=== PATIENT | male | born 1935 | race Two or more races ===

== ENCOUNTER 2025-03-09 11:45 | Day surgery (SDC) | payer MEDICARE, BC, MEDICAID, SELFPAY ==
[2025-03-08 15:12] VITALS: BMI 22.2
[2025-03-09] VITALS (10 sets, daily range): BP systolic 108–173; BP diastolic 55–93; PULSE 59–109; RESP 13–20; TEMP 36.1–36.7; O2SAT 93–100; BMI 21.4
--- NOTE | 2025-03-09 16:30 | SUR.PHASEII ---
1530: pt arrived to PACU via gurney drowsy but arouses to voice, breathing unlabored, pt bedbound at baseline, report from Maria T HUSAIN 1545: pt tolerating oral fluids without difficulty swallowing or n/v 1600: Report called to Colleen HUSAIN at [facility] 1615: Transport here, pt dressed with assistance per baseline, transferred to personal wheelchair without incident, discharge instructions signed by Gena-caregiver 1630: pt discharged via personal wheelchair with family and facility human resource professional to transport van with all belongings and discharge paperwork.
== END 2025-03-09 16:30 | disposition home or self-care (01) ==
PROVIDERS: PCP Family Medicine; Referring Provider Specialist; Visit Provider Specialist
PROC: (CPT 43239; principal; 2025-03-09 14:15)
DX: K22.2 Esophageal obstruction (principal); K22.10 Ulcer of esophagus without bleeding; K29.70 Gastritis, unspecified, without bleeding; K29.50 Unspecified chronic gastritis without bleeding; K31.89 Other diseases of stomach and duodenum; K63.89 Other specified diseases of intestine
CPT/HCPCS: 43248; 43239; A4217; C1769; J1200; J2250; J3010; A9270

== ENCOUNTER 2025-04-08 08:54 | Emergency (ER) | payer MEDICARE, BC, MEDICAID, SELFPAY ==
[2025-04-08 09:05] VITALS: PULSE 85; RESP 18; O2SAT 99
--- NOTE | 2025-04-08 09:10 | EKG_ITS ---
[facility] Test Date: 2025-04-08 Pat Name: GAVIN MÉNDEZ Department: Room: - Gender: Male Phone Counselor: : [id number] Requested By: Andres Morgan Order Number: [id number] Reading MD: Andres Morgan Measurements Intervals Simla Rate: 96 P: -6 VA: 151 QRS: -37 QRSD: 88 T: -22 QT: 339 QTc: 428 Interpretive Statements SINUS RHYTHM LEFT AXIS DEVIATION [QRS AXIS < -30] PATTERN CONSISTENT WITH PULMONARY DISEASE ST DEVIATION AND MODERATE T-WAVE ABNORMALITY, CONSIDER ANTERIOR ISCHEMIA [-0.1+ mV T-WAVE IN V3/V4] Compared to ECG 10/10/2023 00:49:35 Possible ischemia now present Atrial fibrillation no longer present T-wave abnormality still present /store/S0/[id number]/ecg/[id number].pdf
--- NOTE | 2025-04-08 09:11 | EDNOTE_ITS ---
ED General RME/HPI General Chief complaint: GI Bleed Stated complaint: VOMITTING Time Seen by Provider: 04/08/25 09:07 Arrival date/time: 04/08/25 08:54 Limitations: no limitations RME / HPI RME / HPI narrative: DR. HOLGUIN MAIN ED EVALUATION: 89 year old male presents to the Emergency Department BIBA from [facility] with complaint of x1 episode of coffee ground emesis. No other c omplaints at this time. 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 GERD, chronic anemia, and muscle weakness. Code Status: DNR Related Data Home Medications ?Medication ?Instructions ?Recorded ?Confirmed bicalutamide 50 mg tablet 50 mg PO QDAY 11/04/1903/09 enzalutamide 40 mg capsule (Xtandi) 160 mg PO QDAY 03/09/25 tizanidine 2 mg tablet 2 mg PO HS 11/22/23 03/09/25 chlorpromazine 25 mg tablet 25 mg PO Q6H PRN nausea 03/09/25 docusate sodium 100 mg capsule 100 mg PO BID 03/08/25 03/09/25 (Colace) Previous Rx's ?Medication ?Instructions ?Recorded oxycodone 5 mg capsule 5 mg PO Q6H PRN pain #12 cap s 11/25/23 pantoprazole 40 mg tablet,delayed 40 mg PO BID #60 tab s 11/25/23 release (Protonix) doxycycline hyclate 100 mg capsule 100 mg PO BID #14 c aps 04/25/24 sucralfate 1 gram tablet (Carafate) 1 g PO BID #60 tab s 04/08/25 Allergies Allergy/AdvReac Type Severity Reaction Status Date / Time No Known Allergies Allergy Verified 03/09/25 12:18 Review of Systems Review of Systems Systems Reviewed: All systems reviewed, normal except as documented Past Medical History Past Medical History NEUROLOGIC: Positive Neurological Disorders and Dementia; Negative Seizures CARDIAC: Negative Cardiac Disorders or Congestive Heart Failure RESPIRATORY: Positive Pneumonia; Negative Chronic Obstructive Pulmonary Disease (COPD) or Asthma GASTROINTESTINAL: Positive Gastrointestinal Disorders (dysphagia, gerd), Gastrointestinal Bleed and Gastroesophageal Reflux Disease GENITOURINARY: Positive Genitourinary Disorders (hydrocele), Kidney Stones and Prostate Cancer; Negative Renal Disease MUSCULOSKELETAL: Positive Musculoskeletal Disorders, Bone Cancer and Arthritis ENT: Positive Cataracts ENDOCRINE: Negative Endocrine Disorders, Diabetes Mellitus Type 1 or Diabetes Mellitus Type 2 HEMATOLOGIC: Positive Blood Disorders and Anemia; Negative Sickle Cell Disease OTHER HISTORY: Positive Falls, Radiation Therapy, Cancer and Prostate Cancer; Negative Blood Transfusions, Blood Transfusion Reaction, Anesthesia Reactions, MRSA or Clostridium Difficile Family History FAMILY HISTORY: Negative Family Cardiac Disorders Surgical History SURGICAL: Positive Eye Surgery, Abdominal Surgery and Joint Replacement; Negative Endocrine Surgery, Ear Surgery, Neurologic Surgery or Vasectomy Social History SMOKING STATUS: Never smoker SUBSTANCE USE: does not use 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 ED Exam General Limitations: Present no limitations General appearance: Present alert, in no apparent distress and other (Good eye contact) Head Head exam: Present atraumatic, normocephalic and normal inspection Eye Eye exam: Present normal appearance, PERRL and EOMI ENT ENT exam: Present normal exam, normal oropharynx and mucous membranes moist Neck Neck exam: Present normal inspection, full ROM and trachea midline Chest Chest inspection: Present normal inspection and symmetric chest wall rise Respiratory Respiratory exam: Present normal lung sounds bilaterally Cardiovascular Cardiovascular exam: Present regular rate, normal rhythm and normal heart sounds Abdominal Exam Abdominal exam: Present soft and normal bowel sounds Extremities Exam Extremities exam: Present other (contracted) Back Exam Back exam: Present normal inspection Neurological Exam Neurological exam: Present alert (at baseline) Psychiatric Psychiatric exam: Present normal affect and normal mood Skin Skin exam: Present warm, dry, intact and normal color Course Quality Measures none Orders Category Date Time Status Potato Sorter STAT Care 04/08/25 09:47 Active Continuous Pulse Oximetry STAT Care 04/08/25 09:48 Completed EKG (ED ONLY) *Do not use* NOW Care 04/08/25 09:10 Completed Insert IV STAT Care 04/08/25 09:48 Completed NPO STAT Care 04/08/25 09:48 Active Occult Blood,Stool (Nursing) NEEDED Care 04/08/25 09:44 Active EKG (ED Only) Stat Exams 04/08/25 09:10 Draft XR abdomen series w chest 1V Stat Exams 04/08/25 09:49 Completed CBC Stat Lab 04/08/25 10:02 Completed Comprehensive Metabolic Panel Stat Lab 04/08/25 10:02 Completed Lipase Stat Lab 04/08/25 10:02 Completed Magnesium Stat Lab 04/08/25 10:02 Completed Partial Thromboplastin Time Stat Lab 04/08/25 10:02 Completed Prothrombin Time with INR Stat Lab 04/08/25 10:02 Completed Troponin I Stat Lab 04/08/25 10:02 Completed Type and Screen Stat Lab 04/08/25 10:02 Completed Urinalysis Stat Lab 04/08/25 09:49 Ordered Pantoprazole Inj [Protonix Inj] Med 04/08/25 09:44 Discontinued 40 mg IVP X1 ONE Sodium Chloride 0.9% 1000 ml [Ns] 1,000 ml Med 04/08/25 09:44 Discontinued IV 999 mls/hr Vital Signs Vital signs: Vital Signs Temperature 98.7 F 04/08/25 09:15 Pulse Rate 91 04/08/25 09:15 Respiratory Rate 18 04/08/25 09:15 Blood Pressure 169/89 H 04/08/25 09:15 Pulse Oximetry (%) 96 04/08/25 09:15 Oxygen Delivery Method Room Air 04/08/25 09:15 Discharge Plan Plan Patient Disposition: Xfer Skilled Nsg Fac (SNF) Patient condition on transfer: Stable Prescriptions/Referrals Prescriptions/Med Rec: New sucralfate [Carafate] 1 gram tablet 1 g PO BID Qty: 60 0RF No Action bicalutamide 50 mg Tablet 50 mg PO QDAY doxycycline hyclate 100 mg capsule 100 mg PO BID Qty: 14 0RF Xtandi 40 mg capsule 160 mg PO QDAY tizanidine 2 mg tablet 2 mg PO HS pantoprazole [Protonix] 40 mg tablet,delayed release (DR/EC) 40 mg PO BID Qty: 60 2RF oxycodone 5 mg capsule 5 mg PO Q6H MDD 20mg PRN (Reason: pain) Qty: 12 0RF chlorpromazine 25 mg tablet 25 mg PO Q6H PRN (Reason: nausea) docusate sodium [Colace] 100 mg capsule 100 mg PO BID Referrals: Carlin Gómez MD [Primary Care Provider] - In 1 week Problem List Clinical Impression: Upper GI bleed Patient/Caregiver Discharge Instructions Education Materials: ED Upper GI Bleeding (Stable) Additional Instructions: Please follow-up with your primary care physician within 2-3 days. Return to the Emergency Department as needed. Print Language: Omani Stand Alone Forms: Maddy Award Info., Patient Portal Info Letter [facility] Narrative [facility] hospital course: I, Tanya Rubio, am scribing for and in the presence of Dr. Holguin. Patient had one episode of coffee ground emesis but no more episodes here. His hemoglobin is stable and patient had a recent endoscopy that showed gastritis. Plan to discharged, patient is stable. 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 GERD, chronic anemia, and muscle weakness. Code Status: DNR EKG EKG Interpretation narrative: My interpretation: EKG performed at 0915 hours, sinus rhythm, rate 96, left axis deviation, lots of artifact, GA interval 151 ms, QRS duration 88 ms, QT/QTc 339/392, P-R-T axis -6, -37, and -22 Lab Interpretation Labs: see narrative above Imaging Radiology reports / interpretation(s): Procedure(s): XR abdomen series w chest 1V Accession Number(s): [id number] cc: Andres Holguin MD; Juan Lyon MD; Carlin Gómez MD~ Examination: AP chest single view Technique one AP portable semiupright chest single view Date and time: April 08, 2025 1027 hrs. Comparison April 25, 2024 Indications: Abdominal pain chest pain and diarrhea today. Findings: No significant cardiac enlargement No pneumonia or pulmonary edema Prominent osteopenia Old left-sided rib fractures Impression: No active disease Dictated By: Juan Lyon MD Medication Administration(s) Medication Administration History Discontinued Medications Sodium Chloride (Ns) 1,000 mls @ 999 mls/hr IV .Q1H1M ONE Stop: 04/08/25 10:44 Last Infusion: 04/08/25 11:02 Dose: Infused Documented By: Admin: 04/08/25 10:02 Dose: 999 mls/hr Documented By: DO Pantoprazole Sodium (Pantoprazole Inj 40 Mg Vial) 40 mg IVP X1 ONE Stop: 04/08/25 09:45 Last Admin: 04/08/25 10:03 Dose: 40 mg Documented By: DO Diagnosis Differential diagnosis: Upper GI bleed, anemia, dehydration Most likely dx, and/or detailed dx discussion: Upper GI bleed Dispositon Disposition: Nursing/Care
[2025-04-08 09:15] VITALS: BP 169/89; PULSE 91; RESP 18; TEMP 37.1; O2SAT 96
--- NOTE | 2025-04-08 09:49 | XR_ITS ---
Examination: AP chest single view Technique one AP portable semiupright chest single view Date and time: April 08, 2025 1027 hrs. Comparison April 25, 2024 Indications: Abdominal pain chest pain and diarrhea today. Findings: No significant cardiac enlargement No pneumonia or pulmonary edema Prominent osteopenia Old left-sided rib fractures Impression: No active disease
[2025-04-08] MEDS: SODIUM CHLORIDE 0.9% 1000 ML 1,000 ML 999 ML IV (10:02)
[2025-04-08] MEDS: PANTOPRAZOLE INJ 40 MG VIAL IVP (10:03)
[2025-04-08 10:05] VITALS: BP 166/72; PULSE 76; RESP 19; TEMP 37.1; O2SAT 97
[2025-04-08 10:15] LABS: Basophils % (Auto) 0 % (0-2.5); Eosinophils % (Auto) 0 % (0-10); Hematocrit 27.9 % (41.0-53.0); Immature Granulocytes % (Auto) 0 % (0-0); Immature Granulocytes Auto 0.03 Thou/mm3 (0.00-0.00); Lymphocytes # (Auto) 0.6 Thou/mm3 (1.0-4.8); Lymphocytes % (Auto) 8 % (10-50); Mean Corpuscular HGB Conc 32.3 g/dl (31.0-37.0); Mean Corpuscular Hemoglobin 26.1 pg (25.0-35.0); Mean Corpuscular Volume 81 fL (80-100); Monocytes # (Auto) 0.3 Thou/mm3 (0.0-0.8); Monocytes % (Auto) 5 % (0-12); Neutrophils # (Auto) 6.4 Thou/mm3 (1.8-7.7); Neutrophils % (Auto) 87 % (37-80); Nucleated Red Blood Cell % 0 /100 WBC (0); Platelet Count 378 Thou/mm3 (140-440); RDW Standard Deviation 46.6 fL (35.1-43.9); Red Blood Count 3.45 Miln/mm3 (4.50-5.90); White Blood Count 7.4 Thou/mm3 (3.8-10.6)
[2025-04-08 10:38] LABS: Alanine Aminotransferase < 7 U/L (10-49); Albumin, Serum 3.9 gm/dL (3.4-4.8); Albumin/Globulin Ratio 1.3 (1.2-2.2); Alkaline Phosphatase 98 U/L (46-116); Anion Gap 8 (7-16); Aspartate Amino Transferase 18 U/L (0-34); BUN/Creatinine Ratio 20 Ratio (12-20); Bilirubin,Total 0.3 mg/dL (0.3-1.2); Blood Urea Nitrogen 16 mg/dL (9-23); Calcium 9.9 mg/dL (8.3-10.6); Carbon Dioxide 31.3 mMol/L (20.0-31.0); Chloride 101 mMol/L (98-107); Creatinine (Component) 0.8 mg/dL (0.6-1.3); Globulin 3.1 gm/dL (2.3-3.5); Glucose 145 mg/dL (74-106); Lipase 27 U/L (12-53); Magnesium 1.8 mg/dL (1.6-2.6); Osmolality,Calculated 283 (275-295); Potassium 3.7 mMol/L (3.4-5.1); Sodium 140 mMol/L (136-145); Troponin I 0.037 ng/mL (0.0-0.045); eGFR > 60 See Note
[2025-04-08 11:03] VITALS: PULSE 78
--- NOTE | 2025-04-08 11:04 | PC.NURSE ---
Patient DENYS from [facility] for vomiting coffee ground emesis about 30 mins before arrival to ED. Per staff at facility patient recently had a EGD with esophageal dilation done around the end of last month. Patient was changed by this RN and daughter Jyoti at bedside. Patient vitals are stable. Plan of care ongoing
--- NOTE | 2025-04-08 11:24 | PC.NURSE ---
Attempted to give patient urinal for urine sample needed. Patient was not able to urinate at this time. Breif applied. at bedside. Vitals stable. Plan of care ongoing
[2025-04-08 12:00] VITALS: BP 152/76; PULSE 78; RESP 17; TEMP 36.8; O2SAT 98
--- NOTE | 2025-04-08 13:43 | PC.CC ---
Addendum entered by Heidi Copeland 04/08/25 14:45: Ambar from [facility] and stated a furniture delivery driver will p/u pt between [id number]. Original Note: ASW contacted [facility] transporation and requested a return to SNF transport. [facility] will call back with a p/u ETA
--- NOTE | 2025-04-08 14:44 | PC.NURSE ---
[facility] Spoke to Mary. No further questions. Patient to be discharged back to facility all discharge instructions given to Staff and Family that is currently at bedside.
[2025-04-08 14:52] VITALS: BP 154/72; PULSE 66; RESP 16; TEMP 36.8; O2SAT 95
== END 2025-04-08 16:39 | disposition skilled nursing facility (03) ==
PROVIDERS: Emergency Provider Family Medicine; PCP Family Medicine
DX: K92.2 Gastrointestinal hemorrhage, unspecified (principal); R94.31 Abnormal electrocardiogram [ECG] [EKG]
CPT/HCPCS: 36415; 74022; 80053; 81001; 83690; 83735; 84484; 85025; 85610; 85730; 86850; 86900; 86901; 93005; 96361; 96374; 99284; J2470; J7030

== ENCOUNTER 2025-08-03 16:26 | Inpatient (IN) | payer MEDICARE, BC, MEDICAID, SELFPAY ==
[2025-08-03 16:28] VITALS: PULSE 55; O2SAT 98
--- NOTE | 2025-08-03 16:31 | PD.EDGIBLD ---
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 Per medics, [place] staff reported at about 16:00 hours patient began vomiting coffee ground material, equalling to about 2 cups. Accompanied by abdominal discomfort. Per medics, [place] stated the patient was doing well this morning. Related Data Home Medications ?Medication ?Instructions ?Recorded ?Confirmed bicalutamide 50 mg tablet 50 mg PO QDAY 11/04/19 08/03/25 tizanidine 2 mg tablet 2 mg PO HS 11/22/23 08/03/25 chlorpromazine 25 mg tablet 25 mg PO Q6H PRN nausea 03/08/25 08/03/25 docusate sodium 100 mg capsule 100 mg PO BID 03/08/25 08/03/25 (Colace) bisacodyl 10 mg rectal suppository 10 mg PA QDAY PRN constipation 08/03/25 08/03/25 (Dulcolax (bisacodyl)) guaifenesin 15 ml PO Q8HR PRN cough 08/03/25 08/03/25 magnesium hydroxide 30 ml PO Q72H PRN constipation 08/03/25 08/03/25 polyethylene glycol 3350 17 gram 34 g PO QDAY 08/03/25 08/03/25 oral powder packet (Miralax) sennosides 8.6 mg tablet (senna) 8.6 mg PO BID 08/03/25 08/03/25 sodium phosphates 19 gram-7 118 ml PA Q72H PRN constipation 08/03/25 08/03/25 gram/118 mL enema (Enema) tuberculin PPD 5 tub. unit/0.1 mL 5 tb unit .Route [id number] 08/03/25 08/03/25 intradermal injection solution Previous Rx's ?Medication ?Instructions ?Recorded oxycodone 5 mg capsule 5 mg PO Q6H PRN pain #12 caps 11/25/23 pantoprazole 40 mg tablet,delayed 40 mg PO BID 30 days #60 tabs 08/05/25 release Allergies Allergy/AdvReac Type Severity Reaction Status Date / Time No Known Allergies Allergy Verified 03/09/25 12:18 Review of Systems Review of Systems Systems Reviewed: All systems reviewed, normal except as documented Past Medical History Past Medical History NEUROLOGIC: Positive Neurological Disorders and Dementia RESPIRATORY: Positive Pneumonia GASTROINTESTINAL: Positive Gastrointestinal Disorders (dysphagia, gerd), Gastrointestinal Bleed and Gastroesophageal Reflux Disease GENITOURINARY: Positive Genitourinary Disorders (hydrocele), Kidney Stones and Prostate Cancer MUSCULOSKELETAL: Positive Musculoskeletal Disorders, Bone Cancer and Arthritis ENT: Positive Cataracts HEMATOLOGIC: Positive Blood Disorders and Anemia OTHER HISTORY: Positive Falls, Radiation Therapy, Cancer and Prostate Cancer Family History FAMILY HISTORY: Negative Family Cardiac Disorders Surgical History SURGICAL: Positive Eye Surgery, Abdominal Surgery and Joint Replacement; Negative Endocrine Surgery, Ear Surgery, Neurologic Surgery or Vasectomy Social History SMOKING STATUS: Never smoker SUBSTANCE USE: does not use 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 Exam General Limitations: Present no limitations General appearance: Present alert and other (patient actively vomiting coffee ground material during examination) Head Head exam: Present atraumatic, normocephalic and normal inspection Eye Eye exam: Present normal appearance, PERRL and EOMI ENT ENT exam: Present normal exam, normal oropharynx and mucous membranes moist Neck Neck exam: Present normal inspection, full ROM and trachea midline Chest Chest inspection: Present normal inspection and symmetric chest wall rise Respiratory Respiratory exam: Present normal lung sounds bilaterally Cardiovascular Cardiovascular exam: Present regular rate, normal rhythm and normal heart sounds Abdominal Exam Abdominal exam: Present soft and normal bowel sounds Extremities Exam Extremities exam: Present normal inspection and full ROM Back Exam Back exam: Present normal inspection and full ROM Neurological Exam Neurological exam: Present alert and CN II-XII intact Psychiatric Psychiatric exam: Present normal affect and normal mood Skin Skin exam: Present warm, dry, intact and normal color Course Quality Measures none Orders Category Date Time Status Admit to Inpatient Status Routine Admission 08/03/25 18:09 Active Patient Condition Routine Admission 08/03/25 18:09 Ordered Bedrest NOW Care 08/03/25 18:10 Active COVID-19 Screening Questionnaire NOW Care 08/03/25 17:44 Active Engineering Executive Q4H START 00 Care 08/03/25 16:32 Active Continuous Pulse Oximetry NOW Care 08/03/25 16:32 Completed Decision to Admit X1 Care 08/03/25 17:43 Completed Insert IV STAT Care 08/03/25 16:32 Completed Intake and Output Routine Care 08/03/25 16:32 Ordered NPO NOW Care 08/03/25 16:32 Active NPO NOW Care 08/03/25 18:10 Active Notify provider NEEDED Care 08/03/25 18:09 Active Occult Blood,Stool (Nursing) NOW Care 08/03/25 16:34 Active Sequential Compression Device QSHIFT Care 08/03/25 18:09 Active Vital Signs, Non-Routine Q8H Care 08/03/25 18:15 Ordered Consult to Gastroenterology Stat Cons 08/03/25 17:44 Ordered Diet NPO (NOW) Diet 08/03/25 18:10 Completed XR abdomen series w chest 1V Stat Exams 08/03/25 17:25 Completed Ammonia Stat Lab 08/03/25 16:50 Completed CBC AM DRAW Lab 08/04/25 06:31 Completed CBC AM DRAW Lab 08/05/25 05:10 Completed CBC AM DRAW Lab 08/06/25 05:00 Ordered CBC Stat Lab 08/03/25 16:50 Completed Comprehensive Metabolic Panel AM DRAW Lab 08/04/25 06:31 Completed Comprehensive Metabolic Panel AM DRAW Lab 08/05/25 05:10 Completed Comprehensive Metabolic Panel AM DRAW Lab 08/06/25 05:00 Ordered Comprehensive Metabolic Panel Stat Lab 08/03/25 16:50 Completed Lipase Stat Lab 08/03/25 16:50 Completed Magnesium AM DRAW Lab 08/04/25 06:31 Completed Magnesium Stat Lab 08/03/25 16:50 Completed Occult Blood, Gastric (LAB) Stat Lab 08/03/25 16:50 Received Partial Thromboplastin Time Stat Lab 08/03/25 16:50 Completed Phosphorous AM DRAW Lab 08/04/25 06:31 Completed Prothrombin Time with INR AM DRAW Lab 08/04/25 12:08 Completed Prothrombin Time with INR Stat Lab 08/03/25 16:50 Completed Troponin I Stat Lab 08/03/25 16:50 Completed Urinalysis, C/S if Indicated Stat Lab 08/04/25 06:00 Completed Acetaminophen Tab [Tylenol Tab] Med 08/03/25 18:09 Active 650 mg PO Q6H PRN Morphine* Inj Med 08/03/25 17:38 Discontinued 2 mg IVP X1 ONE Ondansetron Inj [Zofran Inj] Med 08/03/25 16:32 Discontinued 4 mg IVP Q1H PRN Ondansetron Inj [Zofran Inj] Med 08/03/25 18:09 Active 4 mg IVP Q6H PRN Ondansetron Inj [Zofran Inj] Med 08/03/25 17:38 Discontinued 4 mg IVP X1 ONE Pantoprazole Inj [Protonix Inj] Med 08/03/25 21:00 Discontinued 40 mg IVP Q12HR Pantoprazole Inj [Protonix Inj] Med 08/03/25 16:32 Discontinued 80 mg IVP X1 ONE Ringers Lactated 1000 ml [Lactated Ringers] 1,000 ml Med 08/03/25 18:15 Active IV 30 mls/hr Sodium Chloride 0.9% 1000 ml [Ns] 1,000 ml Med 08/03/25 16:32 Discontinued IV 999 mls/hr Code Status Routine Oth 08/03/25 18:09 Ordered Oxygen Delivery NOW RT 08/03/25 16:32 Completed Vital Signs Vital signs: Vital Signs Temperature 98.2 F 08/03/25 16:32 Pulse Rate 58 L 08/03/25 16:32 Respiratory Rate 14 08/03/25 16:32 Blood Pressure 158/67 H 08/03/25 16:32 Pulse Oximetry (%) 95 08/03/25 16:32 Oxygen Delivery Method Room Air 08/03/25 16:32 Pulse ox is 95% on room air which is adequate. GI Bleed MDM Narrative MDM Narrative:: I, Patricia Smith am scribing for and in the presence of Dr. Dunn. Notified by RN the emesis is gastrocult positive. 1728: Called Dr. Ramos, no answer, left a voicemail. Pending call back. 0: I spoke with hospitalist Dr. Gil. Discussed patients PMHx, HPI, ED course, exam findings, labs, and radiology results. The hospitalist agree to accept the patient for admission. 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, gastritis, previous admissions for GI bleed (last admission 11/22/24-11/25/24 and ED visit on 04/08/2025) How is presenting disease/condition affected by chronic disease/condition?: exacerbated by Evaluation data The following diagnostics were reviewed and interpreted by me:: lab results and radiology exam(s) Lab and/or radiology exams considered but not ordered:: None Interpretation Summary: H/H has improved from previous ED visit on 04/08/2025 Medications / Prescriptions Medications or Prescriptions considered but not ordered:: None Medication administrations:: Medication Administration History Acetaminophen (Acetaminophen 325 Mg Tablet) 650 mg PO Q6H PRN PRN Reason: Fever >101.5 Stop: 09/02/25 18:08 Lactated Ringer's (Lactated Ringers) 1,000 mls @ 30 mls/hr IV .Q24H [facility] Stop: 09/02/25 18:14 Last Admin: 08/04/25 23:41 Dose: 30 mls/hr Documented By: Infusion: 08/04/25 23:41 Dose: Infused Documented By: Admin: 08/03/25 18:28 Dose: 30 mls/hr Documented By: DENNIS Ondansetron HCl (Ondansetron Inj 2 Mg/Ml Inj 2 Ml) 4 mg IVP Q6H PRN; Protocol PRN Reason: NAUSEA OR VOMITING Stop: 09/02/25 18:08 Pantoprazole Sodium (Pantoprazole 40 Mg Tablet) 40 mg PO BID [facility] Stop: 09/03/25 20:59 Last Admin: 08/05/25 08:17 Dose: 40 mg Documented By: Admin: 08/04/25 20:40 Dose: 40 mg Documented By: [email or web address] Discontinued Medications Benzocaine (Benzocaine 20% (Hurricaine) [place] 1 Dose) 0 dose TOP X1 ONE Stop: 08/04/25 08:50 Last Admin: 08/05/25 07:09 Dose: Not Given Documented By: ELIANE Non-Admin Reason: Endo Orders Benzocaine (Benzocaine 20% (Hurricaine) [place] 1 Dose) Confirm Administered Dose 1 dose TOP .STK-MED ONE Stop: 08/04/25 10:05 Diphenhydramine HCl (Diphenhydramine Inj 50 Mg/Ml Vial) 25 mg IVP PRNMRX1 PRN PRN Reason: MODERATE SEDATION Stop: 08/04/25 10:49 Diphenhydramine HCl (Diphenhydramine Inj 50 Mg/Ml Vial) Confirm Administered Dose 50 mg .ROUTE .STK-MED ONE Stop: 08/04/25 10:05 Fentanyl Citrate (Fentanyl Cit Inj 50 Mcg/Ml Amp 2ml) 50 mcg IVP Q2M PRN PRN Reason: MODERATE SEDATION Stop: 08/04/25 10:49 Fentanyl Citrate (Fentanyl Cit Inj 50 Mcg/Ml Amp 2ml) Confirm Administered Dose 100 mcg .ROUTE .STK-MED ONE Stop: 08/04/25 10:05 Sodium Chloride (Ns) 1,000 mls @ 999 mls/hr IV .Q1H1M ONE Stop: 08/03/25 17:32 Last Infusion: 08/03/25 17:55 Dose: Infused Documented By: Admin: 08/03/25 16:50 Dose: 999 mls/hr Documented By: DENNIS Midazolam HCl (Midazolam Inj 1 Mg/Ml Vial 2 Ml) 2 mg IVP Q2M PRN PRN Reason: Moderate Sedation Stop: 08/04/25 10:49 Midazolam HCl (Midazolam Inj 1 Mg/Ml Vial 2 Ml) Confirm Administered Dose 4 mg .ROUTE .STK-MED ONE Stop: 08/04/25 10:05 Morphine Sulfate (Morphine Sulf Inj 4 Mg/Ml Vial) 2 mg IVP X1 ONE Stop: 08/03/25 17:39 Last Admin: 08/03/25 17:51 Dose: 2 mg Documented By: DENNIS Ondansetron HCl (Ondansetron Inj 2 Mg/Ml Inj 2 Ml) 4 mg IVP Q1H PRN PRN Reason: PERSISTENT NAUSEA OR VOMITING Last Admin: 08/03/25 16:48 Dose: 4 mg Documented By: DENNIS Ondansetron HCl (Ondansetron Inj 2 Mg/Ml Inj 2 Ml) 4 mg IVP X1 ONE; Protocol Stop: 08/03/25 17:39 Last Admin: 08/03/25 17:54 Dose: Not Given Documented By: DENNIS Non-Admin Reason: Duplicate Medication on eMAR Pantoprazole Sodium (Pantoprazole Inj 40 Mg Vial) 80 mg IVP X1 ONE Stop: 08/03/25 16:33 Last Admin: 08/03/25 16:47 Dose: 80 mg Documented By: DENNIS Pantoprazole Sodium (Pantoprazole Inj 40 Mg Vial) 40 mg IVP Q12HR MISSY Stop: 09/02/25 20:59 Last Admin: 08/04/25 08:09 Dose: 40 mg Documented By: Admin: 08/03/25 21:11 Dose: 40 mg Documented By: [email or web address] Potassium Chloride (Potassium Chloride 10% 20 Meq/15 Ml Udc) 40 meq PO X1 ONE Stop: 08/05/25 08:16 Last Admin: 08/05/25 08:28 Dose: 40 meq Documented By: ELIANE Potassium Chloride (Potassium Chloride 10% 20 Meq/15 Ml Udc) 20 meq PO X1 ONE Stop: 08/05/25 08:16 Last Admin: 08/05/25 08:28 Dose: 20 meq Documented By: ELIANE N/A Consultations Consultation(s) initiated? (list below): Yes Consultation #1 (Physician, Specialty, Details): See above Diagnosis GI bleed differential diagnosis: esophageal varices, gastritis and Upper gastrointestinal hemorrhage Most likely diagnosis given after review of the tests above:: Upper GI bleed Admission Indicated Admission indicated?: indicated Admission Request Was there a request for admission?: Yes Admission Attestation Admission request attestation: Discussed case with [] from Hospitalist service regarding admission. Discussed patients ED course, exam findings, labs, and radiology results. The Hospitalist [agrees,declines] to accept the patient for admission. Disposition Plan Disposition Plan: Admit Discharge Plan Plan Patient Disposition: Admit Acute Care w/in Hospital Problem List Clinical Impression: GI bleed
[2025-08-03 16:32] VITALS: BP 158/67; PULSE 58; RESP 14; TEMP 36.8; O2SAT 95; BMI 20.2
[2025-08-03] MEDS: ONDANSETRON INJ 2 MG/ML INJ 2 ML 4 MG IVP (16:48)
[2025-08-03 16:50] VITALS: PULSE 66
[2025-08-03] MEDS: SODIUM CHLORIDE 0.9% 1000 ML 1,000 ML 999 ML IV (16:50)
[2025-08-03 17:12] LABS: Basophils # (Auto) 0.0 Thou/mm3 (0.0-0.2); Basophils % (Auto) 0 % (0-2.5); Eosinophils # (Auto) 0.1 Thou/mm3 (0.0-0.5); Eosinophils % (Auto) 1 % (0-10); Hematocrit 35.4 % (41.0-53.0); Hemoglobin 11.7 g/dL (13.5-16.0); Immature Granulocytes Auto 0.03 Thou/mm3 (0.00-0.00); Lymphocytes # (Auto) 1.6 Thou/mm3 (1.0-4.8); Lymphocytes % (Auto) 22 % (10-50); Mean Corpuscular HGB Conc 33.1 g/dl (31.0-37.0); Mean Corpuscular Hemoglobin 30.2 pg (25.0-35.0); Mean Corpuscular Volume 92 fL (80-100); Monocytes # (Auto) 0.4 Thou/mm3 (0.0-0.8); Monocytes % (Auto) 5 % (0-12); Neutrophils # (Auto) 5.4 Thou/mm3 (1.8-7.7); Neutrophils % (Auto) 72 % (37-80); Nucleated Red Blood Cell # 0.00 Thou/mm3 (0.00-0.00); Nucleated Red Blood Cell % 0 /100 WBC (0); Platelet Count 262 Thou/mm3 (140-440); RDW Standard Deviation 53.6 fL (35.1-43.9); Red Blood Count 3.87 Miln/mm3 (4.50-5.90); White Blood Count 7.6 Thou/mm3 (3.8-10.6)
--- NOTE | 2025-08-03 17:25 | XR_ITS ---
EXAMINATION: AP chest single view TECHNIQUE: AP portable semiupright chest single view Date and time: August 03, 2025, 1754 hours, comparison April 08, 2025 INDICATIONS: Upper gastrointestinal bleeding today. FINDINGS: Mild opacity left base retrocardiac obscuring detail left hemidiaphragm Mild to moderate enlargement left ventricle Ectatic enlarged thoracic aorta Mild vascular congestion Severe osteopenia with old fracture left fifth rib posteriorly Advanced osteoarthritis left glenohumeral joint IMPRESSION: Scarring versus pneumonia left base retrocardiac, clinical correlation advised Mild vascular congestion
[2025-08-03 17:34] LABS: Ammonia < 10 uMol/L (11-32)
[2025-08-03 17:37] LABS: INR 1.0 (0.9-1.3); Partial Thromboplastin Time 26.0 Seconds (22.0-36.0); Prothrombin Time 10.5 Seconds (9.0-12.2)
[2025-08-03 17:46] LABS: Alanine Aminotransferase < 7 U/L (10-49); Albumin, Serum 3.7 gm/dL (3.4-4.8); Albumin/Globulin Ratio 1.2 (1.2-2.2); Alkaline Phosphatase 105 U/L (46-116); Anion Gap 11 (7-16); Aspartate Amino Transferase 22 U/L (0-34); BUN/Creatinine Ratio 23 Ratio (12-20); Bilirubin,Total 0.3 mg/dL (0.3-1.2); Blood Urea Nitrogen 18 mg/dL (9-23); Calcium 10.1 mg/dL (8.3-10.6); Calcium (Corrected) 10.3 mg/dL (8.5-10.1); Carbon Dioxide 31.4 mMol/L (20.0-31.0); Chloride 98 mMol/L (98-107); Creatinine (Component) 0.8 mg/dL (0.6-1.3); Estimated Creatinine Clearance 52.4 mL/min (>60); Globulin 3.0 gm/dL (2.3-3.5); Glucose 154 mg/dL (74-106); Lipase 22 U/L (12-53); Magnesium 1.7 mg/dL (1.6-2.6); Osmolality,Calculated 284 (275-295); Potassium 3.4 mMol/L (3.4-5.1); Sodium 140 mMol/L (136-145); Total Protein 6.7 gm/dL (5.7-8.2); Troponin I 0.026 ng/mL (0.0-0.045); eGFR > 60 See Note
[2025-08-03] MEDS: MORPHINE SULF INJ 4 MG/ML VIAL 2 MG IVP (17:51)
[2025-08-03 18:07] VITALS: BP 156/64; PULSE 53; RESP 24; TEMP 36.6; O2SAT 96
[2025-08-03 18:28] VITALS: BP 149/73; PULSE 56; RESP 16; TEMP 36.7; O2SAT 95
[2025-08-03] MEDS: RINGERS LACTATED 1000 ML 1,000 ML 30 ML IV (18:28)
--- NOTE | 2025-08-03 18:34 | PD.HHHP ---
Documentation for date of: 08/03/25 HPI - Hospitalist History of Present Illness History of present illness: Patient is a 89-year-old male with a medical history of prostate cancer with metastasis to bone/vertebrae, chronic pain, history of esophageal and gastric ulcers, and GERD presents to [facility] emergency department on 08/03/2025 with chief complaint of coffee-ground emesis. History obtained from patient's as she reports patient has relatively become nonverbal over the last couple months. He no longer talks with his . She reports he has had poor oral intake for approximately 6 months now. She reports he was previously on hospice. She is unsure if patient is still receiving treatment for prostate cancer. Last follow-up with oncology in our EMR shows patient was seen 08/03/2023. She is unsure of home medications. She reports the patient has had multiple coffee-ground emesis over the last 24 hours. Per emergency room provider patient had 3 episodes of coffee-ground emesis while in the emergency room. Patient's would like to proceed with EGD. Unfortunately no history can be obtained from patient at this time. Social, Surgical, and family history: Unobtainable at this time. ED Course: Presenting vital signs: Afebrile, BP 149/73, pulse 56, RR 16, O2 sat 95% on room air Pertinent laboratories: WBC 7.6, Hgb 11.7, corrected calcium 10.3, bicarb 31.4, BUN 18, CR 0.8, glucose 154 XR C/P: Scarring versus pneumonia left base retrocardiac, Mild vascular congestion ED Course: IV Protonix 80 mg x 1. Status post 1 L fluid bolus. Gastroenterology consulted. Review of Systems Review of Systems ROS Unobtainable: unobtainable due to medical condition Past Medical History Past Medical History NEUROLOGIC: Positive Neurological Disorders and Dementia RESPIRATORY: Positive Pneumonia GASTROINTESTINAL: Positive Gastrointestinal Disorders (dysphagia, gerd), Gastrointestinal Bleed and Gastroesophageal Reflux Disease GENITOURINARY: Positive Genitourinary Disorders (hydrocele), Kidney Stones and Prostate Cancer MUSCULOSKELETAL: Positive Musculoskeletal Disorders, Bone Cancer and Arthritis ENT: Positive Cataracts HEMATOLOGIC: Positive Blood Disorders and Anemia OTHER HISTORY: Positive Falls, Radiation Therapy, Cancer and Prostate Cancer Family History FAMILY HISTORY: Negative Family Cardiac Disorders Surgical History SURGICAL: Positive Eye Surgery, Abdominal Surgery and Joint Replacement; Negative Endocrine Surgery, Ear Surgery, Neurologic Surgery or Vasectomy Social History SMOKING STATUS: Never smoker SUBSTANCE USE: does not use 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 Home Medications and Allergies Home Medications ?Medication ?Instructions ?Recorded ?Confirmed ?Type bicalutamide 50 mg tablet 50 mg PO QDAY 11/04/19 03/09/25 History enzalutamide 40 mg capsule (Xtandi) 160 mg PO QDAY 10/10/23 03/09/25 History tizanidine 2 mg tablet 2 mg PO HS 11/22/23 03/09/25 History chlorpromazine 25 mg tablet 25 mg PO Q6H PRN nausea 03/08/25 03/09/25 History docusate sodium 100 mg capsule 100 mg PO BID 03/08/25 03/09/25 History (Colace) Allergies Allergy/AdvReac Type Severity Reaction Status Date / Time No Known Allergies Allergy Verified 03/09/25 12:18 Exam Vital Signs Temp Pulse Resp BP Pulse Ox O2 Del Method 98.0 F 56 L 16 149/73 H 95 Room Air 08/03/25 18:28 08/03/25 18:28 08/03/25 18:28 08/03/25 18:28 08/03/25 18:28 08/03/25 18:28 Narrative General: Awake and in no acute distress, chronically ill appearing elderly male HEENT: Normocephalic, atraumatic, mucous membranes moist. NG tube in place Cardiac: Tachycardic rate and irregular rhythm, no murmurs. Lungs: Clear to auscultation with no wheezing or crackles. Abdomen: Mild tenderness to palpation right and left lower quadrants, soft, positive bowel sounds. No guarding or rebound tenderness. Neurology: Alert and oriented, no gross neurological deficit, and patient able to move all 4 extremities. Extremities: No edema. Skin: No rash or ecchymoses. Results - Hospitalist Labs Diagrams: 08/03/25 16:50 08/03/25 16:50 Labs: Short CBC 08/03/25 Range/Units 16:50 WBC 7.6 (3.8-10.6) Thou/mm3 Hgb 11.7 L (13.5-16.0) g/dL Hct 35.4 L (41.0-53.0) % Plt Count 262 (140-440) Thou/mm3 BMP 08/03/25 16:50 Sodium 140 Potassium 3.4 Chloride 98 Carbon Dioxide 31.4 H BUN 18 Creatinine 0.8 Glucose 154 H Calcium 10.1 Cardiac Enzymes 08/03/25 Range/Units 16:50 Troponin I 0.026 (0.0-0.045) ng/mL Liver Function 08/03/25 Range/Units 16:50 Total Bilirubin 0.3 (0.3-1.2) mg/dL AST 22 (0-34) U/L ALT < 7 L (10-49) U/L Alkaline Phosphatase 105 (46-116) U/L Albumin 3.7 (3.4-4.8) gm/dL Assessment & Plan -Hospitalist Additional Assessment Patient is a 89-year-old male with a medical history of prostate cancer with metastasis to bone/vertebrae, chronic pain, history of esophageal and gastric ulcers, and GERD presents to [facility] emergency department on 08/03/2025 with chief complaint of coffee-ground emesis. #Acute blood loss anemia #GI bleed # Coffee-ground emesis on admission 11.7, does not require transfusion at the moment, PT, INR, PTT within normal range. Differential includes gastric ulcer bleed, may be secondary to poor PO intake, ulcerative metastasis, arteriovenous malformation. -Patient typed and screened -Monitor H&H. Transfusing for Hgb <7 or symptomatic. -Avoid NSAIDs/ASA/chemical prophylaxis -IV Protonix 40 mg twice daily -GI consulted, appreciate recommendations -NPO for EGD -Zofran 4 mg IV as needed for nausea - Low-dose maintenance fluids #History of prostate cancer with metastasis Patient appears to be previously followed by by Dr. Hagen oncology although unclear if patient is still following an oncologist. is unsure. -Home medications on hold - Plan: We will attempt to reach out to patient's daughter to obtain more history in regards to patient's cancer treatment. Ultimately patient will need to follow with oncology outpatient. # Failure to thrive Per patient's patient has had little to no oral intake for months in the setting of metastatic cancer - PLan: Consult registered dietitian for recommendations. Consult speech therapy to make sure no contaminant dysphagia is present. DVT prophylaxis: SCDs GI prophylaxis: PPI Diet: NPO Lee: None Lines: Peripheral IV CODE STATUS: DNR Dr. Jeffery MD Quality Measures Quality Measures none Advance care planning discussed with:: patient
[2025-08-03 19:46] VITALS: BMI 20.5; BMI 22.1
[2025-08-03 20:00] VITALS: BP 148/75; PULSE 74; PULSE 75; RESP 16; TEMP 36; O2SAT 95
--- NOTE | 2025-08-03 21:12 | PD.IMCONS ---
HPI Data of Consult Requesting Physician: Karthikeyan Gil MD Primary Care Provider: Physician No Primary/Family Consult Narrative Reason for consult: Coffee-ground hematemesis History of present illness: 89 years old male presented from retirement with multiple episodes of coffee-ground hematemesis Hemoglobin 11.5 g Patient has dementia and metastatic prostate carcinoma not been treated since 2022 No history obtainable from the patient History from the chart review On 02/17/2025 patient had undergone an upper endoscopy which showed proximal esophageal stricture and multiple ulcers distal esophagus Stricture was dilated with guidewire savory dilators [place] 45 and [place]amb[place] 54 cc:: cc: Karthikeyan Gil MD Review of Systems Review of Systems Systems Reviewed: All systems reviewed, normal except as documented Past Medical History Surgical History OTHER SURGICAL HX: As in the history of present illness Meds Home Medications and Allergies Home Medications ?Medication ?Instructions ?Recorded ?Confirmed ?Type bicalutamide 50 mg tablet 50 mg PO QDAY 11/04/19 03/09/25 History enzalutamide 40 mg capsule (Xtandi) 160 mg PO QDAY 10/10/23 03/09/25 History tizanidine 2 mg tablet 2 mg PO HS 11/22/23 03/09/25 History chlorpromazine 25 mg tablet 25 mg PO Q6H PRN nausea 03/08/25 03/09/25 History docusate sodium 100 mg capsule 100 mg PO BID 03/08/25 03/09/25 History (Colace) Allergies Allergy/AdvReac Type Severity Reaction Status Date / Time No Known Allergies Allergy Verified 03/09/25 12:18 Exam Vital Signs Temp Pulse Resp BP Pulse Ox O2 Del Method 96.8 F 75 16 148/75 H 95 Room Air 08/03/25 20:00 08/03/25 20:00 08/03/25 20:00 08/03/25 20:00 08/03/25 20:00 08/03/25 20:00 Constitutional Comments: Chronically ill-appearing Routine Respiratory Exam Comments: Normal to auscultation Routine Abdominal Exam Comments: Soft nontender Results Labs 08/03/25 16:50 08/03/25 16:50 Labs: Short CBC 08/03/25 Range/Units 16:50 WBC 7.6 (3.8-10.6) Thou/mm3 Hgb 11.7 L (13.5-16.0) g/dL Hct 35.4 L (41.0-53.0) % Plt Count 262 (140-440) Thou/mm3 BMP 08/03/25 16:50 Sodium 140 Potassium 3.4 Chloride 98 Carbon Dioxide 31.4 H BUN 18 Creatinine 0.8 Glucose 154 H Calcium 10.1 Cardiac Enzymes 08/03/25 Range/Units 16:50 Troponin I 0.026 (0.0-0.045) ng/mL Liver Function 08/03/25 Range/Units 16:50 Total Bilirubin 0.3 (0.3-1.2) mg/dL AST 22 (0-34) U/L ALT < 7 L (10-49) U/L Alkaline Phosphatase 105 (46-116) U/L Albumin 3.7 (3.4-4.8) gm/dL Assessment and Plan Additional Assessment & Plan Additional Plan: # Coffee-ground hematemesis # Posthemorrhagic anemia Plan Agree with the current management Consent obtained for fiberoptic esophagogastroduodenoscopy with possible biopsy possible therapeutic intervention under intravenous moderate sedation N.p.o. midnight tonight Continue IV Protonix Serial CBC Other medical problems include Dementia Metastatic prostrate CA Thank you for the opportunity to participate in the care of this patient
[2025-08-04] VITALS (14 sets, daily range): BP systolic 98–164; BP diastolic 45–101; PULSE 50–99; RESP 12–20; TEMP 36–36.5; O2SAT 91–100; BMI 22.1
[2025-08-04 08:08] LABS: Basophils # (Auto) 0.0 Thou/mm3 (0.0-0.2); Basophils % (Auto) 0 % (0-2.5); Eosinophils # (Auto) 0.2 Thou/mm3 (0.0-0.5); Eosinophils % (Auto) 3 % (0-10); Hematocrit 33.1 % (41.0-53.0); Hemoglobin 11.1 g/dL (13.5-16.0); Immature Granulocytes Auto 0.03 Thou/mm3 (0.00-0.00); Lymphocytes # (Auto) 1.1 Thou/mm3 (1.0-4.8); Lymphocytes % (Auto) 19 % (10-50); Mean Corpuscular HGB Conc 33.5 g/dl (31.0-37.0); Mean Corpuscular Hemoglobin 30.7 pg (25.0-35.0); Mean Corpuscular Volume 91 fL (80-100); Monocytes # (Auto) 0.5 Thou/mm3 (0.0-0.8); Monocytes % (Auto) 10 % (0-12); Neutrophils # (Auto) 3.8 Thou/mm3 (1.8-7.7); Neutrophils % (Auto) 68 % (37-80); Nucleated Red Blood Cell # 0.00 Thou/mm3 (0.00-0.00); Nucleated Red Blood Cell % 0 /100 WBC (0); Platelet Count 258 Thou/mm3 (140-440); RDW Standard Deviation 54.3 fL (35.1-43.9); Red Blood Count 3.62 Miln/mm3 (4.50-5.90); White Blood Count 5.6 Thou/mm3 (3.8-10.6)
[2025-08-04 08:10] LABS: Collection Type, Urine Clean Catch
[2025-08-04 08:35] LABS: Alanine Aminotransferase < 7 U/L (10-49); Albumin, Serum 3.3 gm/dL (3.4-4.8); Albumin/Globulin Ratio 1.2 (1.2-2.2); Alkaline Phosphatase 91 U/L (46-116); Anion Gap 8 (7-16); Aspartate Amino Transferase 20 U/L (0-34); BUN/Creatinine Ratio 24 Ratio (12-20); Bilirubin,Total 0.3 mg/dL (0.3-1.2); Blood Urea Nitrogen 17 mg/dL (9-23); Calcium 9.5 mg/dL (8.3-10.6); Calcium (Corrected) 10.1 mg/dL (8.5-10.1); Carbon Dioxide 30.8 mMol/L (20.0-31.0); Chloride 105 mMol/L (98-107); Creatinine (Component) 0.7 mg/dL (0.6-1.3); Estimated Creatinine Clearance 63.5 mL/min (>60); Globulin 2.7 gm/dL (2.3-3.5); Glucose 87 mg/dL (74-106); Magnesium 1.6 mg/dL (1.6-2.6); Osmolality,Calculated 287 (275-295); Phosphorous 2.8 mg/dL (2.4-5.1); Potassium 4.2 mMol/L (3.4-5.1); Sodium 144 mMol/L (136-145); Total Protein 6.0 gm/dL (5.7-8.2); eGFR > 60 See Note
[2025-08-04 08:53] LABS: Bilirubin,Urine Negative (Negative); Blood,Urine Negative (Negative); Color,Urine Yellow (Lt Yel-Yel); Culture Indicated,Urine Not Indicated; Glucose, Urine Negative (Negative); Ketones,Urine Negative (Negative); Leukocyte Esterase,Urine Negative (Negative); Nitrite,Urine Negative (Negative); PH,Urine 7.0 (5.0-7.0); Protein,Urine Trace (Neg - Trace); RBC,Urine 3 /hpf (0-3); Specific Gravity,Urine 1.018 (1.001-1.035); Squamous Epithelial Cell,Urine 1 /hpf (0-5); Urobilinogen,Urine Negative mg/dL (0.0-1.0); WBC,Urine 4 /hpf (0-5)
[2025-08-04 08:55] LABS: Clarity,Urine Clear (Clear/Hazy)
--- NOTE | 2025-08-04 09:12 | PCS.ST ---
NPO for EGD. Swallowing evaluation will be completed tomorrow.
--- NOTE | 2025-08-04 10:25 | SUR.PHASEI ---
pt received from OR in recovery bay 2. pt asleep but responds to voice, breathing unlabored on room air. v/s stable. report received from Jyoti Persaud.
--- NOTE | 2025-08-04 10:51 | PC.SS ---
Ervin Black is a 89 year old male admitted to [place] for GI Bleed. SS conducted bedside contact; pt was OOR in a procedure. At bedside was pt Rocio Black [phone] who agreed to answer on his behalf. Rocio confirmed demographics. 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 DC plan discussed and she wishes for pt to return to [facility]. Pt will require transport. Pt PCP is Dr. Gómez. SS will remain available for any further needs or concerns. 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
--- NOTE | 2025-08-04 11:05 | SUR.PHASEI ---
pt asleep but responds to voice, breathing unlabored nc 1. v/s stable. report called to Reina Persaud. pt will be transferred to room at this time.
[2025-08-04 12:39] LABS: INR 1.0 (0.9-1.3); Prothrombin Time 11.0 Seconds (9.0-12.2)
--- NOTE | 2025-08-04 15:18 | ESPR_ITS ---
Documentation for date of: 08/04/25 Subjective - Hospitalist Subjective Interval history: Patient and family seen at bedside. No acute overnight events. Patient was seen prior to EGD and no history could be obtained. Discussed with family at bedside patient will go for EGD and we will follow-up the results. They inquired if patient still has metastatic prostate cancer. Review of Systems Review of Systems ROS Unobtainable: unobtainable due to mental status Exam Vital Signs Temp Pulse Resp BP Pulse Ox O2 Del Method O2 Flow Rate 97.3 F 54 L 16 110/54 L 98 Nasal Cannula 0.5 08/04/25 12:00 08/04/25 12:00 08/04/25 12:00 08/04/25 12:00 08/04/25 12:00 08/04/25 12:00 08/04/25 12:00 Narrative General: Awake and in no acute distress, chronically ill appearing elderly male HEENT: Normocephalic, atraumatic, mucous membranes moist. NG tube in place Cardiac: Tachycardic rate and irregular rhythm, no murmurs. Lungs: Clear to auscultation with no wheezing or crackles. Abdomen: Mild tenderness to palpation right and left lower quadrants, soft, positive bowel sounds. No guarding or rebound tenderness. Neurology: Alert and oriented, no gross neurological deficit, and patient able to move all 4 extremities. Extremities: No edema. Skin: No rash or ecchymoses. Objective - Hospitalist Labs Diagram: 08/04/25 06:31 08/04/25 06:31 Labs: Laboratory Results - last 24 hr 08/03/25 08/04/25 08/04/25 16:50 06:00 06:31 WBC 7.6 5.6 RBC 3.87 L 3.62 L Hgb 11.7 L 11.1 L Hct 35.4 L 33.1 L MCV 92 91 MCH 30.2 30.7 MCHC 33.1 33.5 RDW Std Deviation 53.6 H 54.3 H Plt Count 262 258 Neut % (Auto) 72 68 Lymph % (Auto) 22 19 [place] % (Auto) 5 10 Eos % (Auto) 1 3 Baso % (Auto) 0 0 Neut # (Auto) 5.4 3.8 Lymph # (Auto) 1.6 1.1 [place] # (Auto) 0.4 0.5 Eos # (Auto) 0.1 0.2 Baso # (Auto) 0.0 0.0 Immature Gran # (Auto) 0.03 H 0.03 H Absolute Nucleated RBC 0.00 0.00 Immature Gran % 0 1 H Nucleated RBC % 0 0 PT 10.5 INR 1.0 APTT 26.0 Sodium 140 144 Potassium 3.4 4.2 D Chloride 98 105 Carbon Dioxide 31.4 H 30.8 Anion Gap 11 8 BUN 18 17 Creatinine 0.8 0.7 Estim Creat Clear Calc 52.4 L 63.5 eGFR > 60 > 60 BUN/Creatinine Ratio 23 H 24 H Glucose 154 H 87 D Calculated Osmolality 284 287 Calcium 10.1 9.5 Corrected Calcium 10.3 H 10.1 Phosphorus 2.8 Magnesium 1.7 1.6 Total Bilirubin 0.3 0.3 AST 22 20 ALT < 7 L < 7 L Alkaline Phosphatase 105 91 Ammonia < 10 L Troponin I 0.026 Total Protein 6.7 6.0 Albumin 3.7 3.3 L Globulin 3.0 2.7 Albumin/Globulin Ratio 1.2 1.2 Lipase 22 Ur Collection Type Clean Catch Urine Color Yellow Urine Clarity Clear Urine pH 7.0 Ur Specific [place] 1.018 Urine Protein Trace Urine Glucose (UA) Negative Urine Ketones Negative Urine Blood Negative Urine Nitrite Negative Urine Bilirubin Negative Urine Urobilinogen (Auto) Negative Ur Leukocyte Esterase Negative Urine RBC 3 Urine WBC 4 Ur Squamous Epith Cells 1 Urine Bacteria None Ur Culture Indicated? Not Indicated 08/04/25 12:08 WBC RBC Hgb Hct MCV MCH MCHC RDW Std Deviation Plt Count Neut % (Auto) Lymph % (Auto) [place] % (Auto) Eos % (Auto) Baso % (Auto) Neut # (Auto) Lymph # (Auto) [place] # (Auto) Eos # (Auto) Baso # (Auto) Immature Gran # (Auto) Absolute Nucleated RBC Immature Gran % Nucleated RBC % PT 11.0 INR 1.0 APTT Sodium Potassium Chloride Carbon Dioxide Anion Gap BUN Creatinine Estim Creat Clear Calc eGFR BUN/Creatinine Ratio Glucose Calculated Osmolality Calcium Corrected Calcium Phosphorus Magnesium Total Bilirubin AST ALT Alkaline Phosphatase Ammonia Troponin I Total Protein Albumin Globulin Albumin/Globulin Ratio Lipase Ur Collection Type Urine Color Urine Clarity Urine pH Ur Specific [place] Urine Protein Urine Glucose (UA) Urine Ketones Urine Blood Urine Nitrite Urine Bilirubin Urine Urobilinogen (Auto) Ur Leukocyte Esterase Urine RBC Urine WBC Ur Squamous Epith Cells Urine Bacteria Ur Culture Indicated? 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 #Acute blood loss anemia #GI bleed #Coffee-ground emesis on admission 11.7, does not require transfusion at the moment, PT, INR, PTT within normal range. Differential includes gastric ulcer bleed, may be secondary to poor PO intake, ulcerative metastasis, arteriovenous malformation. -Patient typed and screened -Monitor H&H. Transfusing for Hgb <7 or symptomatic. -Avoid NSAIDs/ASA/chemical prophylaxis -IV Protonix 40 mg twice daily -GI consulted, appreciate recommendations -NPO for EGD -Zofran 4 mg IV as needed for nausea - Low-dose maintenance fluids - Plan: Patient will go for EGD today with gastroenterology. Follow-up results when available and resume diet afterwards. #History of prostate cancer with metastasis Patient appears to be previously followed by by Dr. Hagen oncology although unclear if patient is still following an oncologist. is unsure. - Plan: Appears patient has not followed up with oncology in approximately 2 years. Continue home bicalutamide, family advised to bring medication. Order PSA. Patient advised to follow-up and reestablish care with oncology. # Failure to thrive Per patient's patient has had little to no oral intake for months in the setting of metastatic cancer - PLan: Consult registered dietitian for recommendations. Consult speech therapy to make sure no contaminant dysphagia is present. DVT prophylaxis: SCDs GI prophylaxis: PPI Diet: NPO Lee: None Lines: Peripheral IV CODE STATUS: DNR Dr. Jeffery MD Time Spent with Patient Time: Total time spent is greater than 50% in coordination of care (as documented) at patient's floor/unit and/or counseling patient: Time with patient: Greater than 35 minutes Reason for Continued Stay Reason for continued stay: further dx testing Quality Measures Quality Measures none Advance care planning discussed with:: spouse and child
[2025-08-04] MEDS: PANTOPRAZOLE 40 MG TABLET PO (20:40)
[2025-08-04] MEDS: RINGERS LACTATED 1000 ML 1,000 ML 30 ML IV (23:41)
[2025-08-05] VITALS: BP 123/65; PULSE 52; PULSE 72; RESP 15; TEMP 36.1; O2SAT 94
[2025-08-05 04:00] VITALS: BP 157/66; PULSE 53; PULSE 55; RESP 15; TEMP 36; O2SAT 96
[2025-08-05 05:47] LABS: Basophils # (Auto) 0.0 Thou/mm3 (0.0-0.2); Basophils % (Auto) 1 % (0-2.5); Eosinophils # (Auto) 0.3 Thou/mm3 (0.0-0.5); Eosinophils % (Auto) 6 % (0-10); Hematocrit 30.1 % (41.0-53.0); Hemoglobin 9.9 g/dL (13.5-16.0); Immature Granulocytes Auto 0.01 Thou/mm3 (0.00-0.00); Lymphocytes # (Auto) 1.2 Thou/mm3 (1.0-4.8); Lymphocytes % (Auto) 24 % (10-50); Mean Corpuscular HGB Conc 32.9 g/dl (31.0-37.0); Mean Corpuscular Hemoglobin 29.9 pg (25.0-35.0); Mean Corpuscular Volume 91 fL (80-100); Monocytes # (Auto) 0.5 Thou/mm3 (0.0-0.8); Monocytes % (Auto) 10 % (0-12); Neutrophils # (Auto) 3.1 Thou/mm3 (1.8-7.7); Neutrophils % (Auto) 60 % (37-80); Nucleated Red Blood Cell # 0.00 Thou/mm3 (0.00-0.00); Nucleated Red Blood Cell % 0 /100 WBC (0); Platelet Count 244 Thou/mm3 (140-440); RDW Standard Deviation 52.2 fL (35.1-43.9); Red Blood Count 3.31 Miln/mm3 (4.50-5.90); White Blood Count 5.1 Thou/mm3 (3.8-10.6)
[2025-08-05 06:08] LABS: Prostate Specific Antigen 89.31 ng/mL (0-4.00)
[2025-08-05 06:30] LABS: Alanine Aminotransferase < 7 U/L (10-49); Albumin, Serum 3.2 gm/dL (3.4-4.8); Albumin/Globulin Ratio 1.3 (1.2-2.2); Alkaline Phosphatase 84 U/L (46-116); Anion Gap 8 (7-16); Aspartate Amino Transferase 19 U/L (0-34); BUN/Creatinine Ratio 20 Ratio (12-20); Bilirubin,Total 0.4 mg/dL (0.3-1.2); Blood Urea Nitrogen 14 mg/dL (9-23); Calcium 9.2 mg/dL (8.3-10.6); Calcium (Corrected) 9.8 mg/dL (8.5-10.1); Carbon Dioxide 29.7 mMol/L (20.0-31.0); Chloride 103 mMol/L (98-107); Creatinine (Component) 0.7 mg/dL (0.6-1.3); Estimated Creatinine Clearance 62.3 mL/min (>60); Globulin 2.4 gm/dL (2.3-3.5); Glucose 82 mg/dL (74-106); Osmolality,Calculated 280 (275-295); Potassium 3.1 mMol/L (3.4-5.1); Sodium 141 mMol/L (136-145); Total Protein 5.6 gm/dL (5.7-8.2); eGFR > 60 See Note
[2025-08-05 08:00] VITALS: BP 158/70; PULSE 57; PULSE 59; RESP 16; TEMP 36.1; O2SAT 93
[2025-08-05] MEDS: PANTOPRAZOLE 40 MG TABLET PO (08:17)
[2025-08-05] MEDS: POTASSIUM CHLORIDE 10% 20 MEQ/15 ML UDC PO (08:28)
[2025-08-05] MEDS: POTASSIUM CHLORIDE 10% 20 MEQ/15 ML UDC 40 MEQ PO (08:28)
--- NOTE | 2025-08-05 11:14 | PD.RESDS ---
Planned Discharge Date 08/05/25 DS: Providers Provider Date of admission: 08/03/25 18:25 Primary care physician: Physician No Primary/Family Admitting Provider: Karthikeyan Gil MD Attending Provider on Admission: Karthikeyan Gil MD Consults: 08/03/25 17:44 Consult to Gastroenterology Stat Comment: Consulting Provider: Ty Ramos 08/03/25 18:45 Referral Registered Dietitian Routine Comment: Referral Speech Therapy Routine Comment: 08/03/25 20:16 Referral Occupational Therapy Routine Comment: Referral Registered Dietitian Routine Comment: Attending Provider on DC: Karthikeyan Gil MD Discharging Provider: Jeevan Sosa DO DS: Diagnosis Problem List Completed Was Problem List Reviewed/Reconciled?: Yes Hospital Course Hospital Course Hospital course: Summary: Patient is a 89-year-old male with a 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 ER: Presenting vital signs: Afebrile, BP 149/73, pulse 56, RR 16, O2 sat 95% on room air Pertinent laboratories: WBC 7.6, Hgb 11.7, corrected calcium 10.3, bicarb 31.4, BUN 18, CR 0.8, glucose 154 XR C/P: Scarring versus pneumonia left base retrocardiac, Mild vascular congestion ED Course: IV Protonix 80 mg x 1. Status post 1 L fluid bolus. Gastroenterology consulted. Hospital: During patient's hospital course, he was treated with IV Protonix (later switched to PO) and pRBC transfusions for his acute blood loss anemia 2/2 upper GI bleed. He also underwent upper endoscopy on 08/04 which found many esophageal ulcers located at the GE junction, diffuse mild inflammation and erythema of the gastric antrum, and an 8 cm hiatal hernia with about 1/3 of the stomach sitting in the chest cavity. He was also continued on his home medication of bicalutamide for his PMH of metastatic prostate cancer. By 08/05, patient was deemed clinically improved and discharged back to his detention. Patient is safe to discharge to home. Further discharge instructions below. ? We have started you on the medication pantoprazole for your esophageal ulcers. Take 1 tablet twice a day. For the following 2-3 months. ? We have stopped your home medication sucralfate ? Continue the rest of your home medications as before - Follow up with your primary care physician within 1 week of discharge. If you do not have a primary care physician, please follow up with the [facility] ([phone]) ? If you experience any new, worsening or persistent symptoms either call your primary doctor, or dial 911 or present to the emergency department. #Acute blood loss anemia #GI bleed, likely upper GI #Coffee-ground emesis #History of prostate cancer with metastasis #Failure to thrive Status at Discharge Cognitive/Behavioral Status at Discharge: stable Functional Status at Discharge: independent ambulation Overall Status at Discharge: patient is back to baseline Patient's care plan was discussed with my attending, Dr. Gil, and senior resident, Dr. Grace. Jeevan Sosa, Internal Medicine, PGY-1 Senior Resident Attestation: I have discussed the case with supervising physician and international logistics coordinator physician involved in the care of patient. I personally saw and examined patient and discussed the assessment and plan with the entire medical team, including attending. I agree with assessment and plan as documented above. Jackie Grace MD PGY-2 Internal Medicine Time Spent with Patient Time attestation: Total time spent providing and/or coordinating discharge services: Time spent: Greater than 30 minutes Exam Vital Signs Temp Pulse Resp BP Pulse Ox O2 Del Method O2 Flow Rate 97.0 F 59 L 16 158/70 H 93 L Room Air 0.5 08/05/25 08:00 08/05/25 08:00 08/05/25 08:00 08/05/25 08:00 08/05/25 08:00 08/05/25 08:00 08/04/25 16:00 Narrative Exam General: Awake and in no acute distress, chronically ill appearing elderly male HEENT: Normocephalic, atraumatic, mucous membranes moist. NG tube in place Cardiac: Tachycardic rate and irregular rhythm, no murmurs. Lungs: Clear to auscultation with no wheezing or crackles. Abdomen: Mild tenderness to palpation right and left lower quadrants, soft, positive bowel sounds. No guarding or rebound tenderness. Neurology: Alert and oriented, no gross neurological deficit, and patient able to move all 4 extremities. Extremities: No edema. Skin: No rash or ecchymoses. Discharge Plan Plan Patient Disposition: Xfer Skilled Nsg Fac (SNF) Patient condition on transfer: Stable Care Plan Goals: ? We have started you on the medication pantoprazole for your esophageal ulcers. Take 1 tablet twice a day. For the following 2-3 months. ? We have stopped your home medication sucralfate ? Continue the rest of your home medications as before - Follow up with your primary care physician within 1 week of discharge. If you do not have a primary care physician, please follow up with the [facility] ([phone]) ? If you experience any new, worsening or persistent symptoms either call your primary doctor, or dial 911 or present to the emergency department. Prescriptions/Referrals Prescriptions/Med Rec: New pantoprazole 40 mg Tablet,Delayed Release (Dr/Ec) 40 mg PO BID 30 Days Qty: 60 1RF Continued bicalutamide 50 mg Tablet 50 mg PO QDAY tizanidine 2 mg tablet 2 mg PO HS oxycodone 5 mg capsule 5 mg PO Q6H MDD 20mg PRN (Reason: pain) Qty: 12 0RF chlorpromazine 25 mg tablet 25 mg PO Q6H PRN (Reason: nausea) docusate sodium [Colace] 100 mg capsule 100 mg PO BID sennosides [senna] 8.6 mg tablet 8.6 mg PO BID polyethylene glycol 3350 [Miralax] 17 gram powder in packet 34 g PO QDAY magnesium hydroxide [Milk of Magnesia] 30 ml PO Q72H PRN (Reason: constipation) Rx Instructions: give 30cc by mouth every 72 hours as needed for constipation if no BM for 3 consecutive days guaifenesin [Adult Tussin Chest Congestion] 15 ml PO Q8HR PRN (Reason: cough) Rx Instructions: give 15mL by mouth every 8 hours as needed for cough bisacodyl [Dulcolax (bisacodyl)] 10 mg suppository 10 mg PA QDAY PRN (Reason: constipation) Rx Instructions: insert 1 suppository rectally every 72 hours as needed for constipation tuberculin PPD 5 tub. unit /0.1 mL solution 5 tb unit .Route [id number] Enema 19-7 gram/118 mL enema 118 ml PA Q72H PRN (Reason: constipation) Rx Instructions: insert 1 applicator rectally every 72 hours as needed for constipation if MOM/Dulcolax suppository ineffective Discontinued sucralfate [Carafate] 1 gram tablet 1 g PO BID Qty: 60 0RF Referrals: Ty Ramos MD [Physician, Gastroenterology] No Primary/Family,Physician [Primary Care Provider] Patient/Caregiver Discharge Instructions Education Materials: Esophageal Ulcer Print Language: [place] Stand Alone Forms: Maddy Award Info., Patient Portal Info Letter Discharge Order Discharge Orders: Discharge (Routine); Ordered 08/05/25 Ordered By: Jackie Grace Quality Discharge Quality Measures none MD Attestestation MD Attestation I have examined the patient, reviewed labs and imaging findings, discussed the case with the resident(s), and reviewed entered orders. I agree with the plan of care as outlined in this note. Time Spent: [address] Jeffery MD
--- NOTE | 2025-08-05 11:16 | PC.SS ---
Addendum entered by DEE Gavin 08/05/25 13:19: [employer] notified Susan at [facility] of ETA. Updated notes were sent via [employer] to [facility]. Addendum entered by DEE Gavin 08/05/25 13:18: Bedside nurse Reina updated [employer] and informed her that patient and patient met with doctors and no longer have questions and are ready for d/c, patient will need transportation and family is unable to pay out of pocket. [employer] attempted to schedule with [employer] transportation but they did not have gurney transport, Suasn from [facility] stated that they do not provide transportation on Sundays. [employer] scheduled transportation with [employer], [facility] was completed, ETA is 14:00, [employer] notified bedside nurse of ETA and patients spouse. Original Note: [employer] received phone call from bedside nurse Reina stating that doctor has put in dc orders and patient will need transportation back to [facility]. [employer] met with patient and patient at bedside to discuss transportation, [employer] informed patient and patient that they do not have coverage for transportation patients stated that they are unable to pay for transportation and requested that [employer] ask if [facility] is able to provide transportation. Patients requested to speak to nurse, [employer] notified bedside nurse Reina, nurse spoke to family. SS will follow up with transportation once patients speaks to doctors.
[2025-08-05 12:00] VITALS: BP 113/58; PULSE 60; PULSE 61; RESP 14; TEMP 36.1; O2SAT 98
== END 2025-08-05 14:25 | disposition skilled nursing facility (03) | DRG 381 ==
LOC: SERX 17:56 → S3NX 08-04 08:21 → SERHOLD 08-06 05:47
PROVIDERS: Specialist; Admitting Provider Student in an Organized Health Care Education/Training Program; Emergency Provider Family Medicine; Visit Provider Student in an Organized Health Care Education/Training Program
PROC: (CPT 43239; principal; 2025-08-04 09:30)
DX: K22.11 Ulcer of esophagus with bleeding (principal); C79.51 Secondary malignant neoplasm of bone; D62 Acute posthemorrhagic anemia; K92.0 Hematemesis; F03.90 Unspecified dementia, unspecified severity, without behavioral disturbance, psychotic disturbance, mood disturbance, and anxiety; K44.9 Diaphragmatic hernia without obstruction or gangrene; K29.70 Gastritis, unspecified, without bleeding; G89.29 Other chronic pain; R62.7 Adult failure to thrive; K21.9 Gastro-esophageal reflux disease without esophagitis; C61 Malignant neoplasm of prostate; Z66 Do not resuscitate; Z87.11 Personal history of peptic ulcer disease
CPT/HCPCS: 36415; 74022; 80053; 81001; 82140; 82271; 83690; 83735; 84100; 84153; 84484; 85025; 85610; 85730; 87081; 92610; 93225; 99284; A4649; J1200; J2250; J2270; J2405; J2470; J3010; J7030; J7120; A9270